=== PATIENT | female | born 1990 | race Caucasian/White ===

== ENCOUNTER → 2024-12-29 | Outpatient (CLI) | payer OTHER, SELFPAY ==
--- NOTE | 2024-12-29 09:58 | US_ITS ---
PROCEDURE: ABDOMEN LIMITED 12/29/2024 REASON FOR EXAM: RUQ PAIN COMPARISON: None FINDINGS: Liver: Diffusely echogenic suggesting fatty infiltration. There is evidence focal fatty sparing adjacent of the gallbladder fossa. Hepatomegaly. The liver measures 18.3 cm. Gallbladder: Surgically absent. Common bile duct: Dilated measuring up to 4.8 mm . Pancreas: Visualized portions are unremarkable. The distal body and tail are obscured by bowel gas. Other: Visualized portions of the right kidney are unremarkable. No right upper quadrant ascites. US/Abdomen Limited IMPRESSION: Fatty infiltration of the liver with focal fatty sparing. Hepatomegaly. Status post cholecystectomy. Reading Location: [place] [id number]
== END | disposition home or self-care (01) ==
LOC: US 09:46
PROVIDERS: Referring Provider Internal Medicine Gastroenterology; Visit Provider Internal Medicine Gastroenterology
DX: R10.11 Right upper quadrant pain (principal)
CPT/HCPCS: 76705